=== PATIENT | female | born 1955 | race Caucasian/White ===

== ENCOUNTER 2022-01-23 05:36 | Inpatient (IN) ==
[2022-01-23] MEDS ORDERED: Naloxone 0.4 MG/ML INJ IVP PRN (08:19)
[2022-01-23] MEDS ORDERED: methylPREDNISolone 125 MG/2 ML VIAL IVP STA (08:46)
[2022-01-23 09:08] LABS: Basophils % 0.3 %; Hematocrit 46.4 % (35.3-44.9); Hemoglobin 15.2 g/dL (11.5-15.4); Immature Granulocytes % 0.6 % (0-4); Lymphocytes # 0.4 K/mcL (0.6-4.6); Lymphocytes % 3.5 %; Mean Corpuscular HGB Conc 32.8 g/dL (31.6-35.5); Mean Corpuscular Hemoglobin 31.7 pg (28.0-33.3); Mean Corpuscular Volume 96.7 fL (83.0-100.0); Mean Platelet Volume 9.5 fL (9.4-12.4); Monocytes # 0.3 K/mcL (0.0-1.3); Monocytes % 2.6 %; Neutrophils # 11.7 K/mcL (1.6-8.9); Platelet Count 300 K/mcL (140-400); Red Cell Distribution Width 11.6 % (11.5-14.5); White Blood Count 12.5 K/mcL (4.3-11.1)
[2022-01-23 09:10] LABS: Alanine Aminotransferase 18 Units/L (7-52); Albumin 4.2 g/dL (3.5-5.7); Albumin/Globulin Ratio 1.9 (1.1-2.2); Alkaline Phosphatase 42 Units/L (34-104); Aspartate Amino Transferase 20 Units/L (13-39); BUN/Creatinine Ratio 26 (6-26); Bilirubin,Total 0.4 mg/dL (0.3-1.0); Blood Urea Nitrogen 14 mg/dL (8-23); Carbon Dioxide 34 mEq/L (23-29); Chloride 93 mEq/L (98-107); Globulin 2.2 g/dL (2.4-3.5); Glucose 147 mg/dL (70-105); Osmolality,Calculated 279 (280-300); Potassium 4.2 mEq/L (3.5-5.1); Sodium 133 mEq/L (136-145); Total Protein 6.4 g/dL (6.4-8.9); eGFR For African Americans > 60 (> 60); eGFR For Non-African Americans > 60 (> 60)
[2022-01-23 09:36] LABS: Heparin anti-factor XA UFH 0.94 IU/mL (0.30-0.70)
[2022-01-23] MEDS ORDERED: *HR* Heparin 5,000 UNIT/ML VIAL IVP PRN ×2 (09:50)
[2022-01-23] MEDS ORDERED: *HR* Heparin 5,000 UNIT/ML VIAL IVP ONE (09:50)
[2022-01-23] MEDS ORDERED: Heparin 25,000UNIT/250ML 1/2NS 25,000 UNIT/250 ML IV.SOLN IVC SCH (10:00)
[2022-01-23 10:08] LABS: INR 1.1
[2022-01-23] MEDS: Ipratropium/Albuterol Neb 3 ML IH SCH ×3 (10:18→21:00)
[2022-01-23] MEDS: MethylPREDNISolone 40 MG/ML VIAL IVP SCH ×2 (17:16→22:53)
[2022-01-24] MEDS: Ipratropium/Albuterol Neb 3 ML IH SCH ×4 (03:52→20:30)
[2022-01-24 04:29] LABS: Basophils % 0.2 %; Hematocrit 46.1 % (35.3-44.9); Hemoglobin 15.1 g/dL (11.5-15.4); Immature Granulocytes % 0.6 % (0-4); Lymphocytes # 0.7 K/mcL (0.6-4.6); Lymphocytes % 5.3 %; Mean Corpuscular HGB Conc 32.8 g/dL (31.6-35.5); Mean Corpuscular Hemoglobin 31.7 pg (28.0-33.3); Mean Corpuscular Volume 96.6 fL (83.0-100.0); Mean Platelet Volume 9.4 fL (9.4-12.4); Monocytes # 0.7 K/mcL (0.0-1.3); Monocytes % 5.4 %; Neutrophils # 11.6 K/mcL (1.6-8.9); Platelet Count 284 K/mcL (140-400); Red Blood Count 4.77 M/mcL (3.82-4.97); Red Cell Distribution Width 11.8 % (11.5-14.5); Segmented Neutrophils % 88.5 %; White Blood Count 13.1 K/mcL (4.3-11.1)
[2022-01-24 05:05] LABS: BUN/Creatinine Ratio 23 (6-26); Blood Urea Nitrogen 12 mg/dL (8-23); Calcium 9.1 mg/dL (8.6-10.3); Carbon Dioxide 39 mEq/L (23-29); Chloride 96 mEq/L (98-107); Glucose 131 mg/dL (70-105); Osmolality,Calculated 288 (280-300); Potassium 4.3 mEq/L (3.5-5.1); Sodium 138 mEq/L (136-145); eGFR For African Americans > 60 (> 60); eGFR For Non-African Americans > 60 (> 60)
[2022-01-24] MEDS ORDERED: Perflutren Lipid Microsphere 1.3 ML in 0.9 % Sodium Chloride 8.7 ML IVP PRN (08:00)
[2022-01-24] MEDS ORDERED: NON-FORMULARY MEDICATION 1 EACH EACH (Omega-3/Dha/Epa/Fish Oil [Fish Oil 1,000 Mg Softgel] PO SCH (09:00)
[2022-01-24] MEDS: MethylPREDNISolone 40 MG/ML VIAL IVP SCH ×3 (09:24→23:04)
[2022-01-24] MEDS: Azithromycin 250 MG TABLET PO SCH (09:24)
[2022-01-24] MEDS: Magnesium Oxide 400 MG TABLET PO SCH (09:24)
[2022-01-24] MEDS: Budesonide/Formoterol 160/4.5 1 PUFF INH IH SCH ×2 (10:43→20:30)
[2022-01-24] MEDS: *HR* Heparin 5,000 UNIT/ML VIAL SQ SCH (17:09)
[2022-01-25] MEDS: Ipratropium/Albuterol Neb 3 ML IH SCH ×4 (03:49→22:52)
[2022-01-25] MEDS: *HR* Heparin 5,000 UNIT/ML VIAL SQ SCH ×2 (05:06→18:00)
[2022-01-25] MEDS: Azithromycin 250 MG TABLET PO SCH (09:48)
[2022-01-25] MEDS: Magnesium Oxide 400 MG TABLET PO SCH (09:48)
[2022-01-25] MEDS: Budesonide/Formoterol 160/4.5 1 PUFF INH IH SCH ×2 (10:08→22:52)
[2022-01-25] MEDS: MethylPREDNISolone 40 MG/ML VIAL IVP SCH (18:00)
[2022-01-26] MEDS: Ipratropium/Albuterol Neb 3 ML IH SCH (03:57)
[2022-01-26] MEDS: MethylPREDNISolone 40 MG/ML VIAL IVP SCH (05:26)
[2022-01-26] MEDS: *HR* Heparin 5,000 UNIT/ML VIAL SQ SCH (05:26)
[2022-01-26 06:37] VITALS: BP 140/68; PULSE 82; TEMP 97.9; O2SAT 99
[2022-01-26] MEDS: Azithromycin 250 MG TABLET PO SCH (07:26)
[2022-01-26] MEDS: Magnesium Oxide 400 MG TABLET PO SCH (07:26)
== END 2022-01-26 09:58 | disposition home or self-care (01) | DRG 189 ==
LOC: 3NENU → SUATTDRO 07:50
PROVIDERS: ADMIT Family Medicine; ATTEND Internal Medicine